=== PATIENT | female | born 1955 | race Caucasian/White ===

== ENCOUNTER 2022-01-21 18:12 | Emergency (ER) | payer SELFPAY ==
[~2022-01-21 18:12] MED LIST: Iopamidol 370 76% 125 ML VIAL FS ONE; Sodium Chloride 0.9% 100 ML BAG ONE
[2022-01-21] MEDS ORDERED: Ondansetron PF 4 MG/2 ML Vial ONE (18:51)
[2022-01-21] MEDS ORDERED: Sodium Chloride 0.9% 1,000 ML ONE (18:51)
[2022-01-21] MEDS ORDERED: Morphine 4 MG/ML VIAL ONE (18:51)
[2022-01-21 18:57] LABS: #Basophils 0.1 thou/uL (0.0-0.2); #Eosinphils 0.2 thou/uL (0.0-0.7); #Lymphocytes 3.1 thou/uL (1.20-3.40); #Monocytes 0.5 thou/uL (0.11-0.59); %Basophils 0.9 % (0.0-1.0); %Eosinophils 1.9 % (0.0-10.0); %Lymphocytes 34.7 % (21.0-51.0); %Monocytes 5.9 % (0.0-10.0); %Neutrophils 56.6 % (42.0-75.0); Hemoglobin 13.9 g/dL (12.0-16.0); Mean Corpuscular HGB CONC 33.5 g/dL (32.0-36.0); Mean Corpuscular Hemoglobin 28.8 pg (27.0-31.0); Mean Corpuscular Volume 86.1 fL (78.0-98.0); Mean Platelet Volume 7.3 fL (7.4-10.4); Platelet Count 271 thou/uL (130-400); RBC Distribution Width 12.2 % (11.5-14.5); Red Blood Cell (RBC) Count 4.83 mill/uL (4.20-5.40); White Blood Cell (WBC) Count 8.9 thou/uL (4.8-10.8)
[2022-01-21 19:14] LABS: ALT (SGPT) 16 U/L (8-55); AST (SGOT) 19 U/L (5-34); Albumin 4.4 g/dL (3.4-4.8); Alkaline Phosphatase 80 U/L (40-110); Anion Gap 17 mmol/L (10-20); BUN (Urea Nitrogen) 19 mg/dL (9.8-20.1); Bilirubin, Total 0.4 mg/dL (0.2-1.2); Calc. Creatinine Clearance 0 mL/min (70-130); Calcium 10.6 mg/dL (7.8-10.44); Carbon Dioxide 26 mmol/L (23-31); Chloride 102 mmol/L (98-107); Globulin 3.6 g/dL (2.4-3.5); Glucose 149 mg/dL (80-115); Potassium 3.8 mmol/L (3.5-5.1); Sodium 141 mmol/L (136-145)
[2022-01-21] MEDS ORDERED: HYDROcodone/Acetaminophen 5/325 mg Tablet ONE (20:51)
[2022-01-21] MEDS ORDERED: Ketorolac Tromethamine 30 MG/ML VIAL ONE (20:52)
[2022-01-21] MEDS ORDERED: Cyclobenzaprine 10 MG TAB ONE (20:52)
== END 2022-01-21 21:10 | disposition home or self-care (01) ==
LOC: MADERS 18:12
DX: M62.830 Muscle spasm of back (principal); M54.40 Lumbago with sciatica, unspecified side; E11.9 Type 2 diabetes mellitus without complications; E03.9 Hypothyroidism, unspecified; I10 Essential (primary) hypertension
CPT/HCPCS: 71275; 74174; 80053; 85025; 96374; 96375; J1885; J2270; J2405; J7050; Q9967

== ENCOUNTER 2023-07-23 08:32 | Outpatient (CLI) | payer MEDICARE | END 2023-07-23 08:33 | disposition home or self-care (01) | LOC: MADULT 08:32 | PROVIDERS: ATTEND Nurse Practitioner Family | DX: E04.9 Nontoxic goiter, unspecified (principal) | CPT/HCPCS: 76536 ==

== ENCOUNTER 2024-10-07 13:51 | Outpatient (CLI) | payer MEDICARE | END 2024-10-07 13:52 | disposition home or self-care (01) | LOC: MADRAD 13:51 | PROVIDERS: ATTEND Family Medicine | DX: M79.641 Pain in right hand (principal); M19.041 Primary osteoarthritis, right hand ==

== ENCOUNTER 2025-08-05 17:49 | Emergency (ER) | payer MEDICARE ==
[2025-08-05] MEDS ORDERED: predniSONE 20 MG TAB ONE (19:09)
[2025-08-05] MEDS ORDERED: Amoxicillin/Potassium Clav 875 MG TAB ONE (19:09)
== END 2025-08-05 19:13 | disposition home or self-care (01) ==
LOC: MADERS 17:49
DX: H65.92 Unspecified nonsuppurative otitis media, left ear (principal); J06.9 Acute upper respiratory infection, unspecified; R05.3 Chronic cough; E03.9 Hypothyroidism, unspecified; E11.9 Type 2 diabetes mellitus without complications; I10 Essential (primary) hypertension; E66.9 Obesity, unspecified; Z79.899 Other long term (current) drug therapy
CPT/HCPCS: 99283; J7512